=== PATIENT | male | born 1985 | race Caucasian/White ===

== ENCOUNTER 2019-08-20 17:59 | Emergency (ER) | payer OTHER ==
[2019-08-20] MEDS ORDERED: HYDROcodone/APAP 5-325MG 1 EACH TAB PO STA (18:13)
--- NOTE | 2019-08-20 18:28 | XR ---
EXAMINATION TYPE: XR hand complete RT DATE OF EXAM: 08/20/2019 COMPARISON: NONE HISTORY: Fall. Pain. TECHNIQUE: 3 views FINDINGS: Metacarpals appear intact. I see no fracture nor dislocation. There are no erosions. IMPRESSION: Negative right hand exam. No fracture seen.
[2019-08-20] MEDS ORDERED: ACET/COD 300 MG/30 MG STARTER PACK 6 TAB BTL PO STA (18:58)
--- NOTE | 2019-08-20 19:12 | ED ---
General Adult HPI - General Chief complaint: Extremity Injury, Upper Stated complaint: rt arm injury from fall Time Seen by Provider: 08/20/19 18:06 Source: patient Mode of arrival: ambulatory Limitations: no limitations - History of Present Illness Initial comments: Patient is a 34-year-old male presenting to emergency Department with a chief complaint of hand pain. Patient reports the incident occurred about 2 hours prior to ED arrival when he was walking on ice and fell on his right hand hyper extending his right thumb. He states there is some tingling along the first second and third digits. He states there is limited range of motion in the right thumb due to pain. Patient reports pain with palpation. He does report some swelling in the region as well. He denies any skin discoloration. He denies taking any medication to alleviate the symptoms. - Related Data Allergies Allergy/AdvReac Type Severity Reaction Status Date / Time No Known Allergies Allergy Verified 08/20/19 18:05 Review of Systems ROS Statement: Those systems with pertinent positive or pertinent negative responses have been documented in the HPI. ROS Other: All systems not noted in ROS Statement are negative. Past Medical History Past Medical History: No Reported History History of Any Multi-Drug Resistant Organisms: None Reported Additional Past Surgical History / Comment(s): oral surgery from trauma Past Psychological History: No Psychological Hx Reported Smoking Status: Current every day smoker Past Alcohol Use History: Occasional Past Drug Use History: Marijuana General Exam Limitations: no limitations General appearance: alert, in no apparent distress Head exam: Present: atraumatic, normocephalic, normal inspection Eye exam: Present: normal appearance Pupils: Present: normal accommodation ENT exam: Present: normal exam, mucous membranes moist Neck exam: Present: normal inspection, full ROM Respiratory exam: Present: normal lung sounds bilaterally Cardiovascular Exam: Present: regular rate, normal rhythm, normal heart sounds Extremities exam: Present: tenderness (Anatomical snuffbox tenderness), normal capillary refill (Normal capillary refill on all digits of the right hand.), other (+2 ulnar radial pulses bilaterally.). Absent: normal inspection (Swelling at the right thumb), full ROM (Limited range of motion with abduction) Back exam: Present: normal inspection, full ROM Neurological exam: Present: alert, oriented X3 Psychiatric exam: Present: normal affect, normal mood Skin exam: Present: warm, dry, intact, normal color Course Vital Signs 08/20/19 08/20/19 18:03 19:22 Temperature 98.4 F 98 F Pulse Rate 87 78 Respiratory 18 16 Rate Blood Pressure 115/74 148/70 O2 Sat by Pulse 98 98 Oximetry Procedures - Orthopedic Splinting/Casting Injury #1 Side: right Upper Extremity Injury Location: wrist Upper Extremity Immobilizer: thumb spica, Adrian wrap, synthetic pre-padded splint Medical Decision Making - Medical Decision Making Patient is a 34-year-old male presenting to emergency Department with a chief complaint of a right hand injury. On exam patient does have limited range of motion due to pain with abduction of the right thumb. X-rays negative for acute fracture or dislocations. He is neurovascularly intact in the right hand. He does have some anatomical snuffbox tenderness. Thumb spica applied. I suspect the patient has suffered a skiers thumb. Patient advised to follow-up with ort raf. Patient given analgesia. Strict return parameters were thoroughly discussed with patient was understanding and agreeable. Patient advised to apply ice compress to minimize symptoms. He was also advised to alternate between Tylenol and ibuprofen for pain control. Case discussed with physician. Disposition Clinical Impression: Wrist injury Disposition: HOME SELF-CARE Condition: Stable Instructions (If sedation given, give patient instructions): Wrist Injury (ED) Additional Instructions: Please follow up with orthopedics. Alternate between Tylenol and ibuprofen for pain control. Please return to emergency department if symptoms worsen. Is patient prescribed a controlled substance at d/c from ED?: No Referrals: None,Stated [Primary Care Provider] - 1-2 days Randolph Marion PAC [PHYSICIAN PATCH FINISHER] - 1-2 days Time of Disposition: 19:12
[2019-08-20 19:23] VITALS: BP 148/70; PULSE 78; RESP 16; TEMP 98
== END 2019-08-20 19:22 | disposition home or self-care (01) ==
LOC: EC 17:59
DX: S69.91XA Unspecified injury of right wrist, hand and finger(s), initial encounter (principal); F17.200 Nicotine dependence, unspecified, uncomplicated; W00.9XXA Unspecified fall due to ice and snow, initial encounter; Y93.01 Activity, walking, marching and hiking
CPT/HCPCS: 29125; 99283